=== PATIENT | female | born 1970 | race Caucasian/White ===

== ENCOUNTER → 2017-03-04 | Outpatient (REF) | LOC: LAB 08:31 | DX: Z01.419 Encounter for gynecological examination (general) (routine) without abnormal findings (principal); E78.2 Mixed hyperlipidemia ==

== ENCOUNTER → 2017-03-04 | Outpatient (CLI) | payer OTHER | LOC: MAMMO 07:59 | DX: Z12.31 Encounter for screening mammogram for malignant neoplasm of breast (principal); Z01.419 Encounter for gynecological examination (general) (routine) without abnormal findings | CPT/HCPCS: G0202 ==

== ENCOUNTER → 2018-03-01 | Outpatient (CLI) | payer OTHER | LOC: RAD 09:30 | DX: N85.8 Other specified noninflammatory disorders of uterus (principal) ==

== ENCOUNTER → 2021-11-19 | Outpatient (CLI) | payer OTHER | LOC: RAD 10:16 | DX: M54.2 Cervicalgia (principal) ==